=== PATIENT | female | born 1950 | race Two or more races ===

== ENCOUNTER 2020-08-16 15:41 | Outpatient (CLI) | payer OTHER | END 2020-08-20 15:59 | disposition home or self-care (01) | LOC: RAD 15:41 → RX STUDY 15:41 | PROVIDERS: ATTEND Colon & Rectal Surgery | DX: K59.09 Other constipation (principal) | CPT/HCPCS: 74018; 78266; A9541 ==

== ENCOUNTER 2020-11-16 11:15 | Inpatient (IN) | payer OTHER ==
[~2020-11-16] VITALS: Ht 167.6 cm; Wt 55.3 kg
[2020-11-16] MEDS ORDERED: SYNTHROID88 MCG PO (14:29)
[2020-11-16] MEDS ORDERED: SPIRIVA RESPIMAT4 G1 IH (14:29)
[2020-11-16] MEDS ORDERED: CLORAZEPATE DIP15 MG PO (14:31)
[2020-11-16] MEDS ORDERED: MEMANTINE HCL5 MG PO (14:31)
[2020-11-16] MEDS ORDERED: METHYLPREDNISOLO8 MG PO (14:32)
[2020-11-16] MEDS ORDERED: ATORVASTATIN CA20 MG PO (14:32)
[2020-11-16] MEDS ORDERED: B12 ACTIVE1000 MCG PO (14:32)
[2020-11-16] MEDS ORDERED: MAXIMUM D3325 MCG PO (14:33)
[2020-11-23] MEDS ORDERED: NORTRIPTYLINE H50 MG (07:54)
[2020-11-23] MEDS ORDERED: VITAMIN D3250 MCG (07:55)
[2020-11-23] MEDS ORDERED: SYNTHROID100 MCG (07:55)
[2020-11-23] MEDS ORDERED: SPIRIVA RESPIMAT4 GM (07:55)
[2020-11-23] MEDS ORDERED: VITAMIN B-121000 MC4 (07:55)
[2020-11-23] MEDS ORDERED: RIVASTIGMINE4.5 MG (07:56)
== END 2020-11-25 19:34 | disposition home or self-care (01) | DRG 331 ==
LOC: SURH 11-23 05:20 → O/R 11-23 05:20 → SURH 11-23 07:00
PROVIDERS: ADMIT Colon & Rectal Surgery; ATTEND Colon & Rectal Surgery
PROC: 0DTF4ZZ Resection of Right Large Intestine, Percutaneous Endoscopic Approach (ICD-10-PCS; principal; 2020-11-23 07:00)
DX: K63.89 Other specified diseases of intestine (principal); K31.89 Other diseases of stomach and duodenum; K57.30 Diverticulosis of large intestine without perforation or abscess without bleeding

== ENCOUNTER 2020-12-05 16:18 | Inpatient (IN) | payer OTHER ==
[~2020-12-05] VITALS: Ht 152.4 cm; Wt 57.2 kg
[~2020-12-05 16:18] MED LIST: ATORVASTATIN CA20 MG PO; B12 ACTIVE1000 MCG PO; CLORAZEPATE DIP15 MG PO; MAXIMUM D3325 MCG PO; MEMANTINE HCL5 MG PO; METHYLPREDNISOLO8 MG PO; NORTRIPTYLINE H50 MG; RIVASTIGMINE4.5 MG; SPIRIVA RESPIMAT4 G1 IH; SPIRIVA RESPIMAT4 GM; SYNTHROID100 MCG; SYNTHROID88 MCG PO; VITAMIN B-121000 MC4; VITAMIN D3250 MCG
--- NOTE | 2020-12-05 16:25 | NUR ---
SE RECIBE PTE FEMENINA ALERTA Y ORIENTADA EN LAS ETHEL ESFERAS EN AMBULANCIA EN COMPANIA DE FAMILIAR, REFIERE DOLOR ABDOMINAL Y VOMITOS X3 EN EL [place] DE [place]. PTE FUE OPERADA DE INTESTINOS EL PASADO EN [facility]. SE PRESENTA PTE A SE UBICA EN AREA DE OBSERVACION.
--- NOTE | 2020-12-05 16:25 | NUR ---
SE OBSERVA PTE CON DRENAJE ROSALINA SUNI PROVENIENTE DEL HOGAR.
--- NOTE | 2020-12-05 18:05 | NUR ---
PACIENTE FEMINA ALERTA ORIENTADA EN COMPANIA DE FAMILIAR Y DEVIDAMENTE IDENTIFICADA. SE RE ORIENTA SOBRE EL TRATAMIENTO RODENADO POR EL MEDICO LA MISMA REFIERE ENTENDER. BAJO MEDIDAS ASEPTICAS SE CANALIZA SE URVASHI MUESTRAS DE LABORATORIO Y SE ADMINISTRAN ,MEDICAMENTOS PAZ ORDENADOS. ORDENES TOMADAS Y EJECUTADAS POR RN: MEY. SE DIANA PRIVACIDAD SEGURIDAD Y PRIVACIDAD EN TODO MOMENTO Y SE ASISTE A OSWALD NECESIDADES.
--- NOTE | 2020-12-05 18:53 | NUR ---
PACIENTE FEMINA ALERTA ORIENTADA BAJO MEDIDAS ASEPTICAS SE INSERTA NGT EN LADO LT CON RESIDUAL DE 800 AL MOMENTO PACIENTE ESTABLE. SE RE ORINETA SOBRE LA IMPORTANCIA DE TENER EL MISMO LA MISMA REFIERE ENTENDER. SE COMIENZAN RONDAS FRECUENTES PARA ESTIMAR ALGUNA ALTERACION A [facility] DI[facility]NOSTICO MEDICO.
[2020-12-06] MEDS ORDERED: INTESTINEX680 M1 (10:51)
[2020-12-10] MEDS ORDERED: FLUCONAZOLE100 MG PO (18:39)
== END 2020-12-10 19:54 | disposition home or self-care (01) | DRG 394 ==
LOC: ER 16:18 → SURG 22:51
PROVIDERS: ADMIT Colon & Rectal Surgery; ATTEND Colon & Rectal Surgery
PROC: 0D9770Z Drainage of Stomach, Pylorus with Drainage Device, Via Natural or Artificial Opening (ICD-10-PCS; principal; 2020-12-07)
PROC: 02HV33Z Insertion of Infusion Device into Superior Vena Cava, Percutaneous Approach (ICD-10-PCS; 2020-12-07)
DX: K91.858 Other complications of intestinal pouch (principal); K56.690 Other partial intestinal obstruction; B37.49 Other urogenital candidiasis; K92.0 Hematemesis; K62.4 Stenosis of anus and rectum; Y83.8 Other surgical procedures as the cause of abnormal reaction of the patient, or of later complication, without mention of misadventure at the time of the procedure; K31.89 Other diseases of stomach and duodenum; E03.9 Hypothyroidism, unspecified; Z20.822 Contact with and (suspected) exposure to COVID-19; Z95.0 Presence of cardiac pacemaker